=== PATIENT | female | born 1955 | race Caucasian/White ===

== ENCOUNTER 2025-05-27 09:02 | Emergency (ER) | payer MEDICARE, SELFPAY ==
--- OUTSIDE RECORDS SUMMARY | 2025-05-11 01:32 | XMS_ITS | Continuity of Care Document ---
Author Organization [facility] Phone Care Team Providers Care Feather Boner Name Role Phone JOSEP GROVES Admitting JOSEP GROVES Unavailable ZACH CRAIG Primary Care JOSEP GROVES Primary Attending ALLERGIES AND ADVERSE REACTIONS ALLERGIES AND ADVERSE REACTIONS Code System Allergy Substance Adverse Reaction Date Reaction (Severity) Comment Status Reported By Updated By No Known Allergies [id number] on May 09, 2025 12:57:05 PM [facility] RESULTS Patient: IVAN Colvin Date of : 1955 7 LABORATORY RESULTS Information is not available LABORATORY NARRATIVE RESULTS Information is not available RADIOLOGY RESULTS ORDER 100: KNEE 3V LT (LOINC : 21055-0) ORDER DATE: May 09, 2025 12:57:00 PM [facility] PERFORMING LAB: [address] [id number] Final Result Date: May 09, 2025 1:31:[address] [place] [address] Name: KEISHA LOVE Exam Date: 05/09/2025 : 1955 Age 69 years Gender: F Physician: JOSEP GROVES Facility: [facility] Facility HSV: Outpatient Exam: KNEE 3V LT Left knee 3 views HISTORY: Knee pain COMPARISON: None FINDINGS: 3 views obtained. No fracture or dislocation. No focal bone lesion or osseous loose body. No findings to indicate joint effusion. Joint compartments are well-maintained. IMPRESSION: No acute osseous abnormality. No significant degenerative changes. Electronically signed by: Marine South MD 05/09/2025 08:34 AM [facility] [place] Dictated By: MARINE SOUTH Transcribed By: Transcribed On: 05/09/2025 8:31 AM Electronically signed by: MARINE SOUTH 05/09/2025 Thank you for referring KEISHA LOVE to [facility]. Legally authenticated by KING MARINE 2025-05-09 08:31:53 PATHOLOGY NARRATIVE RESULTS Information is not available MICROBIOLOGY RESULTS No Micro Labs/Results Exist for Patient BLOOD ADMIN RESULTS Information is not available MEDICATIONS HOME MEDICATIONS Status RXNORM NDC Medication Dose Route Frequency Dates Comments Reported By Updated By Active [id number] 44368 buspirone 10 mg tablet 1.0 TAB ORAL DAILY Last Dose: [id number] on May 09, 2025 12:57:06 PM [facility] Active [id number] 46106 Celexa 10 mg tablet 0.0 ORAL DAILY Last Dose: [id number] on May 09, 2025 12:57:07 PM [facility] DISCHARGE MEDICATIONS Status RXNORM NDC Medication Dose Route Frequency Dates Dis pense Data Comments Physician Updated By No Discharge Medication Info rmation Available INPATIENT MEDICATIONS Status RXNORM NDC Medication Dose Route Frequency Rat e Quantity Dates Indication Dispense Data Comments Physician Updated By Bessie inued [id number] NEOSPORIN UD ORIGINAL 3.5-400-500 0 OINT 1.0 DAFNE ENTERA L ONE TIME ONLY Start: 2024 1:02:0 0 PM [place] End: 2024 1:02:0 0 PM [facility] GERMAIN Valadez MD INTERFAC ED on May 09, 2025 1:02:00 PM [facility] SOCIAL HISTORY SOCIAL HISTORY - Smoking Status SNOMED-CT Social History Element Description Effective Dates Offered Cessation Comment Updated By [id number] Current Tobacco smoking status Never Smoked [id number] on May 09, 2025 12:57:47 PM [facility] SOCIAL HISTORY - Gender Sex: Female SOCIAL HISTORY - Status : status i nformation is not available Intention in Next Year: intention information is not available SOCIAL HISTORY - Assessments Code System Description Status Date Value of Assessment Updated By Comment Assessment Information is no t available SOCIAL HISTORY - [place] Affiliation [place] information is not av ailable SOCIAL HISTORY - Legal Sex Legal Sex information is not available SOCIAL HISTORY - Sexual Behavior Sexual Orientation Gender Identity SNOMED-CT Description SNO MED -CT Description Activity Level No of Partners Partner Type UpdatedBy Information is not available SOCIAL HISTORY - Occupation Occupation information is no t available VITAL SIGNS PATIENT VITAL SIGNS This section displays the mo st recent value for each vital sign as of May 11, 2025 6:32:07 AM UTC Loinc Code Vital Sign Activity Date Result Updated By 8310-5 Body temperature May 09 12:49:50 PM UTC 98.1 [degF] 22409-3 Body weight Measured April 12:51:38 PM UTC 89.0 kg (196.0 lb) [id number] on May 09, 2025 12:51:38 PM UTC 8462-4 Diastolic blood pressure May 09, 2025 12:49:50 PM UTC 80.0 mm[Hg] 8867-4 Heart rate May 09 12:49:50 PM UTC 64 /min 26305-9 Oxygen saturation in Arterial blood by Pulse oximetry May 09, 2025 12:49:50 PM UTC 96.0 % 9279-1 Respiratory rate May 09 12:49:50 PM UTC 18 /min 8480-6 Systolic blood pressure May 09, 2025 12:49:50 PM UTC 161.0 mm[Hg] PEDIATRIC GROWTH CHART - VITAL SIGNS This section displays Head C ircumference Percentile, Weight for Length Percentile and BMI Percentile Loinc Code Pediatric Measure Age (Months) Result Updat ed By No Pediatric Growth Chart Pe rcentile Information Available. HEALTH CONCERNS Problems Concern Status Health Concern problem infor mation not available. Smoking Status Status Years Used Consumed packs p er day Health Concern smoking histo ry information not available. Family History Concern Status Health Concern family histor y information not available. ENCOUNTERS ENCOUNTER INFORMATION Reason for Visit FALL INJURY Admission May 09, 2025 12:43:00 PM [place] [address] [id number] Discharge May 09, 2025 1:42:00 PM UTC DISCHARGED TO HOME OR SELF CARE ENCOUNTER DIAGNOSES Notes information is not francisco javier ilable. Code System Diagnosis Onset Date Diagnosis information is not available. ABSTRACT DIAGNOSES Code System Diagnosis Updated By Abatement Date S89.92XA ICD10 UNSPECIFIED INJU RY OF LEFT LOWER LEG, INITIAL ENCOUNTER [id number] on May 11, 2025 6:30:58 AM UTC S01.91XA ICD10 LACERATION WITHO UT FOREIGN BODY OF UNSPECIFIED PART OF HEAD, INITIAL ENCOUNTER [id number] on May 11, 2025 6:30:58 AM UTC R51.9 ICD10 HEADACHE, UNSPECIFIED [id number] on May 11, 2025 6:30:58 AM UTC S80.02XA ICD10 CONTUSION OF LEF T KNEE, INITIAL ENCOUNTER [id number] on May 11, 2025 6:30:58 AM UTC S00.93XA ICD10 CONTUSION OF UNS PECIFIED PART OF HEAD, INITIAL ENCOUNTER [id number] on May 11, 2025 6:30:58 AM UTC F41.9 ICD10 ANXIETY DISORDER, UNSPECIFIE D [id number] on May 11, 2025 6:30:58 AM UTC F32.A ICD10 DEPRESSION, UNSPECIFIED [id number] on May 11, 2025 6:30:58 AM UTC Z79.899 ICD10 OTHER PRODUCTION COORDINATOR (CURRENT) DRUG THERAPY [id number] on May 11, 2025 6:30:58 AM UTC W01.198A ICD10 FALL ON SAME LEV EL FROM SLIPPING, TRIPPING AND STUMBLING WITH SUBSEQUENT STRIKING AGAINST OTHER OBJECT, INITIAL ENCOUNTER [id number] on May 11, 2025 6:30:58 AM UTC Y93.K1 ICD10 ACTIVITY, WALKING AN ANIMAL [id number] on May 11, 2025 6:30:58 AM [facility] CARE TEAM Care Feather Boner Role JOSEP GROVES Admitting JOSEP GROVES Referring ZACH CRAIG Primary Care JOSEP GROVES Primary Attending CARE TEAM CARE wind projects supervisor Role on Team Location Telecom Status Start Date End Hkadar e Updated By GERMAIN Valadez MD, MD Referring normal May 09, 2025 1:12:43 PM [place] May 09, 2025 1:42:00 PM [facility] [id number] on May 09, 2025 1:12:43 PM [facility] GERMAIN Valadez MD, MD Attending normal May 09, 2025 1:12:43 PM [facility] May 09, 2025 1:42:00 PM [facility] [id number] on May 09, 2025 1:12:43 PM [facility] GERMAIN Valadez MD, MD Admitting normal May 09, 2025 1:12:43 PM [place] May 09, 2025 1:42:00 PM [facility] [id number] on May 09, 2025 1:12:43 PM [facility] KIARA PARNELL APRN [facility] normal May 09, 2025 12:44:20 PM UTC May 09, 2025 1:42:00 PM [facility] [id number] on May 09, 2025 1:12:43 PM [facility]
[2025-05-27 09:20] VITALS: BP 133/82; PULSE 77; RESP 18; TEMP 36.4; O2SAT 97; BMI 32.5
--- NOTE | 2025-05-27 09:21 | CT_ITS ---
PROCEDURE INFORMATION: Exam: CT Maxillofacial With Contrast Exam date and time: 05/27/2025 10:23 AM Age: 70 years old Clinical indication: Other: Cf left facial abscess TECHNIQUE: Imaging protocol: Computed tomography of the face with contrast. Radiation optimization: All CT scans at this facility use at least one of these dose optimization techniques: automated exposure control; mA and/or kV adjustment per patient size (includes targeted exams where dose is matched to clinical indication); or iterative reconstruction. Contrast material: ISOVUE; Contrast volume: 80 ml; Contrast route: IV; COMPARISON: No relevant prior studies available. FINDINGS: Paranasal sinuses: No air-fluid levels. Orbital cavities: Orbits are normal. Globes are unremarkable. Lymph nodes: Borderline prominent, multi station lymph nodes likely reactive. Bones: No acute fracture. Soft tissues: There are phlegmonous changes overlying the labial aspect of the left maxillary alveolar process. The culprit is a periapical lucency along the left maxillary canine tooth (ADA 11). IMPRESSION: There are phlegmonous changes overlying the labial aspect of the left maxillary alveolar process. The culprit is a periapical lucency along the left maxillary canine tooth (ADA 11).
--- OUTSIDE RECORDS SUMMARY | 2025-05-27 09:28 | XMS_ITS | Clinical Summary ---
Author Organization 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 Name Role Phone Unavailable Primary Care Provider Unavailabl e Surgical History Surgery Date Site/Laterality Comments BREAST BIOPSY 06/21/1987 - 06/20/1988 Left Social History Tobacco Use Types Packs/Day Years Used Date Smoking Tobacco: Never Assessed Comments No Sex and Gender Information Value Date Recorded Sex Assigned at Not on file Legal Sex Female 12:12 PM EDT Gender Identity Not on file Sexual Orientation Not on file Obstetrics History Para Term AB IAB SAB Ectopic Multiple Livin g Live Births 2 Last Filed Vital Signs Vital Sign Reading Time Taken Comments Blood Pressure - - Pulse - - Temperature - - Respiratory Rate - - Oxygen Saturation - - Inhaled Oxygen Concentration - - Weight 83.9 kg (185 lb) 12/11/2024 9:58 AM EDT Height 165.1 cm (5' 5 ) 12/11/2024 9:58 AM EDT Body Mass Index 30.79 12/11/2024 9:58 AM EDT Plan of Treatment Health Maintenance Due Date Last Done Comments Wellness Exam Medicare 1958 Hepatitis C Screening 1975 DTaP/TDaP/Td (1 - Tdap) 1976 Colonoscopy 2002 FIT 2002 Sigmoidoscopy 2002 Virtual Colonography 2002 Pneumococcal Vaccine 50+ (1 of 1 - PCV) 2007 Zoster (1 of 2) 2007 Bone Density Screening 2022 COVID-19 Vaccine ( - 2024-2 6 season) 2025 Influenza Vaccine (#1) 2025 Breast Cancer Screening 12/11/2026 12/12/19 25, 12/11/2022 Cologuard 01/09/2027 01/10/2024, 06/21/2019 Colon Cancer Screening 01/09/2027 Hepatitis B Vaccine Aged Out No longe r eligible based on patient's age to complete this topic Meningococcal B Vaccine Aged Out No l onger eligible based on patient's age to complete this topic Procedures Procedure Name Priority Date/Time Associated Diagnosis Comments MM MAMMO DIGITAL CONNIE SCREEN BILAT Routine 12/11/2024 9:58 AM EDT Encounter for screening mammogram for malignant neoplasm of breast from Last 3 Months or Most Recently Relevant to Health Maintenance Results * MM MAMMO DIGITAL CONNIE SCREEN BILAT (12/11/2024 9:58 AM EDT) Anatomical Region Laterality Modality Breast Bilateral Mammography 12/11/2024 9:58 AM EDT Impressions 12/12/2024 8:15 AM EDT Negative ([id number]) RECOMMENDATION: Routine Screening Mammogram in 1 Year Bilateral . . COMMENTS: DISCLAIMER *The patient was notified by MyChart or mail of the results for this examination. *The patient's information was entered into a reminder system with a target due date for the next breast imaging, in accordance with the [employer] and the Society of Breast Imaging recommendations. *Breast Imaging has a false negative rate of 15%. *Any patient with a palpable abnormality, unexplained by breast imaging, should be managed on a clinical basis by the attending physician. Narrative 12/12/2024 8:15 AM EDT EXAM: MM MAMMO DIGITAL CONNIE SCREEN BILAT EXAM DATE: 12/11/2024 9:58 AM INDICATION: Z12.31-Encounter for screening mammogram for malignant neoplasm of [id number] COMPARISON STUDIES: Compared with prior studies the most recent being 12/11/2022 MM MAMMO DIGITAL CONNIE SCREEN BILAT at [facility] TISSUE DENSITY: The breasts are heterogeneously dense, which may obscure small masses. FINDINGS: No mammographic evidence of malignancy. Procedure Note Mar Mendez MD - 12/12/2024 EXAM: MM MAMMO DIGITAL CONNIE SCREEN BILAT EXAM DATE: 12/11/2024 9:58 AM INDICATION: Z12.31-Encounter for screening mammogram for malignantneoplasm of [id number]-NIQ-96-CM COMPARISON STUDIES: Compared with prior studies the most recent being 12/11/2022 MM MAMMO DIGITAL CONNIE SCREEN BILAT at [facility] TISSUE DENSITY: The breasts are heterogeneously dense, which may obscuresmall masses. FINDINGS: No mammographic evidence of malignancy. IMPRESSION: Negative ([id number]) RECOMMENDATION: Routine Screening Mammogram in 1 Year Bilateral . . COMMENTS: DISCLAIMER *The patient was notified by MyChart or mail of the results for this examination. *The patient's information was entered into a reminder system with atarget due date for the next breast imaging, in accordance with the [employer] and the Society of Breast Imaging recommendations. *Breast Imaging has a false negative rate of 15%. *Any patient with a palpable abnormality, unexplained by breast imaging,should be managed on a clinical basis by the attending physician. us Lindy Gamez SHEARER SCREEN MEASURER AND TRIMMER IMG MAMMOGRAPHY ORDERABLE S Final Result from Last 3 Months or Most Recently Relevant to Health Maintenance Insurance [employer] MEDICARE ADVANTAGE MR
[2025-05-27 09:31] VITALS: BP 128/78; PULSE 69; O2SAT 97
--- NOTE | 2025-05-27 09:35 | HMH.EDGENADL ---
Discharge Plan Disposition Patient Disposition: Home, Self-Care Condition: Fair Prescriptions Prescriptions: New amoxicillin-pot clavulanate [Augmentin] 500-125 mg tablet 1 tab PO BID Qty: 20 0RF Referrals Follow up/Referrals: Lindy Gamez APRN [Primary Care Provider, Medical] - See instructions Clinical Impressions Clinical Impression: Dental abscess Instructions Patient Instructions: DI for Tooth Abscess Print Language Print Language: Korean Discharge ED Provider: Chan Sadler General Adult HPI General Chief complaint: Dental/Oral Stated complaint: tooth pain, swelling Time Seen by Provider: 05/27/25 09:21 Mode of Arrival: Ambulatory Source of Information: Patient Description of Symptoms (Recalled from ER Triage Doc. by RN): pt presents to ED with c/o left sided facial swelling and pain. pt reports that symptoms began last night. History of Present Illness HPI narrative: Patient is a 70-year-old female with a history of multiple canals requiring multiple teeth extractions who complains of left-sided facial swelling over the past several days with pain. Denies fevers chills nausea or vomiting. Denies extraocular eye movement difficulties or vision changes Related Data Previous Rx's ?Medication ?Instructions ?Recorded amoxicillin 500 mg-potassium 1 tab PO BID #20 tabs 05/27/25 clavulanate 125 mg tablet (Augmentin) Allergies Allergy/AdvReac Type Severity Reaction Status Date / Time No Known Allergies Allergy Verified 05/27/25 09:23 [facility] Disclaimer: The information contained in this section may have been updated after the patient was seen, as this information can be updated by other users. Social History Smoking Status: Never smoker alcohol intake: never current occupational status: other Travel in the last 8 weeks?: None ROS Obtained: Yes Systems reviewed as appropriate & no additional complaints except as documented Physical Exam General General appearance: alert Head Head exam: atraumatic Eye Eye exam: Present normal appearance, PERRL and EOMI ENT ENT exam: Present normal exam and other (Left-sided maxillary swelling, pain with palpation of the left maxillary teeth) Chest Chest inspection: Present normal inspection Respiratory Respiratory exam: Present other (Saturating appropriately on room air with normal effort) Cardiovascular Cardiovascular exam: Present regular rate Abdominal Exam Abdominal exam: Present other (Nondistended) Extremities Exam Extremities exam: Present normal inspection Neurological Exam Neurological exam: Present alert and oriented X3 Psychiatric Psychiatric exam: Present normal affect Skin Skin exam: Present warm Medical Decision Making Medical Records Screening: Per USPSTF and CDC recommendations, given the prevalence of disease in our region, it is our hospital?s policy to screen for HIV and viral Hepatitis for all patients aged 18 and over and those with ongoing risk factors. Iraj Inquiry Pt receiving controlled substance: No Vital Signs: 05/27/25 09:20 05/27/25 09:31 05/27/25 10:00 Temperature 97.6 F Temperature Source Oral Pulse Rate 69 57 L Pulse Rate [Left Radial] 77 Respiratory Rate 18 Blood Pressure 128/78 138/78 Blood Pressure [Right Arm] 133/82 Blood Pressure Mean [Right Arm] 99 02 Sat by Pulse Oximetry 97 97 96 Oxygen Delivery Method Room Air 05/27/25 10:31 05/27/25 11:00 05/27/25 11:39 Temperature 97.6 F Temperature Source Pulse Rate 55 L 60 60 Pulse Rate [Left Radial] Respiratory Rate 18 Blood Pressure 156/83 H 161/75 H 160/81 H Blood Pressure [Right Arm] Blood Pressure Mean [Right Arm] 02 Sat by Pulse Oximetry 95 95 Oxygen Delivery Method Lab Data Lab Results 05/27/25 09:31: WBC 6.0, RBC 4.69, Hgb 14.7, Hct 43.6, MCV 93.0, MCH 31.3 H, MCHC 33.7, RDW 12.1, Plt Count 304, MPV 9.0, Neut % (Auto) 68.7, Lymph % (Auto) 21.4, [place] % (Auto) 7.5, Eos % (Auto) 1.5, Baso % (Auto) 0.7, Neut # (Auto) 4.1, Lymph # (Auto) 1.3, [place] # (Auto) 0.5, Eos # (Auto) 0.1, Baso # (Auto) 0.0, Sodium 134 L, Potassium 4.0, Chloride 102, Carbon Dioxide 26, Anion Gap 10.0, BUN 8, Creatinine 0.80, Estimated Creat Clear 76, Estimated GFR 71, Est GFR ( Amer) 86, Glucose 104 H, Calcium 9.6, Total Bilirubin 0.5, AST 34, ALT 42, Alkaline Phosphatase 80, C-Reactive Protein 2.8, Total Protein 8.1, Albumin 4.6, Globulin 3.5 H, Albumin/Globulin Ratio 1.3 no leukocytosis or significant anemia, crp not significantly elevated, no hepatic or renal dysfunction 05/27/25 09:31 05/27/25 09:31 Orders (Tests/Meds): ED MEDICATIONS Discontinued Medications Generic Name Dose Route Start Last Admin Trade Name Pascualq PRN Reason Stop Dose Admin Benzocaine/Butamben/Tetracaine HCl 1 gm 05/27/25 10:50 05/27/25 11:15 Tetracaine/Benzocaine/Butamben 56 Gm [place] TP 05/27/25 10:51 1 gm ONCE ONE Administration Iopamidol 80 ml 05/27/25 10:29 05/27/25 10:30 Iopamidol-370 (76%);100ml Bottle IV 05/27/25 10:30 80 ml ONCE ONE Administration Lidocaine HCl 15 ml 05/27/25 10:50 05/27/25 11:15 Lidocaine 2% Viscous Rosa 15ml Udc PO 05/27/25 10:51 15 ml ONCE ONE Administration Sodium Chloride 10 ml 05/27/25 10:29 05/27/25 10:30 Sodium Chloride 0.9% 10ml Syr (Rad Only) IV 05/27/25 10:30 10 ml ONCE ONE Administration ORDERS Category Date Time Status CT facial bones w con Stat Cat Scan 05/27/25 09:21 Completed C-Reactive Protein Stat Lab 05/27/25 09:31 Completed CBC w/Auto Diff [Complete Blood Count Auto Diff] Stat Lab 05/27/25 09:31 Completed CMP [Comprehensive Metabolic Panel] Stat Lab 05/27/25 09:[address] Scan: Other (face) Time Received: 09:[address] Reviewed: Yes I have reviewed the patient's CT results and I have viewed the radiologist's interpretation Findings Narrative: periapical abscess with phlegmonous changes without discrete abscess US Data ED US Reviewed: Yes I have reviewed the patient's US results and I have viewed radiologist's interpretation Medical Decision Narrative: patient remained hds, pain well controlled with naproxen and tylenol. prescribed augmentin given evidence of dental infeciton without organized abscess, given return precautions for systemic symptoms, worsening of swelling, eom difficulties, or vision changes. states she will f/u with dentist this week. Critical Care Critical Care Time Critical Care Time: No
[2025-05-27 09:40] LABS: Hematocrit 43.6 % (37.0-47.0); Hemoglobin 14.7 g/dL (12.2-16.2); Immature Granulocytes % 0.2 %; Mean Corpuscular HGB Conc 33.7 g/dL (31.8-35.4); Mean Corpuscular Hemoglobin 31.3 pg (27.0-31.2); Mean Corpuscular Volume 93.0 fl (81-99); Nucleated Red Blood Cells % 0 %; Platelet Count 304 K/mm3 (142-424); Red Blood Count 4.69 M/mm3 (4.20-5.40); Red Cell Distribution Width-SD 41.9 fL; White Blood Count 6.0 K/mm3 (4.8-10.8)
[2025-05-27 09:50] LABS: Alanine Aminotransferase 42 U/L (12-78); Albumin Level 4.6 g/dl (3.5-5.0); Albumin/Globulin Ratio 1.3 (1.1-1.8); Alkaline Phosphatase 80 U/L (38-126); Anion Gap 10.0 mEq/L (5-15); Aspartate Amino Transferase 34 U/L (14-36); Bilirubin,Total 0.5 mg/dl (0.2-1.3); Blood Urea Nitrogen 8 mg/dl (7-17); Calcium 9.6 mg/dl (8.4-10.2); Carbon Dioxide 26 mmol/L (22.0-30.0); Chloride 102 mmol/L (98-107); Creatinine Clearance Estimated 76 mL/min (50-200); Creatinine,Serum 0.80 mg/dl (0.52-1.04); Estimated Glomerular Filt Rate 71 ml/min (>60); GFR (African American) 86 ML/MIN (>60); Globulin 3.5 g/dL (1.3-3.2); Glucose 104 mg/dl (74-100); Potassium 4.0 mmoL/L (3.5-5.1); Sodium 134 mmol/L (136-145); Total Protein,Serum 8.1 g/dl (6.3-8.2)
[2025-05-27 09:54] LABS: C-Reactive Protein 2.8 mg/L (0-4)
[2025-05-27 10:00] VITALS: BP 138/78; PULSE 57; O2SAT 96
[2025-05-27] MEDS: IOPAMIDOL-370 (76%);100ML BOTTLE 80 ML IV (10:30)
[2025-05-27] MEDS: SODIUM CHLORIDE 0.9% 10ML SYR (RAD ONLY) 10 ML IV (10:30)
[2025-05-27 10:31] VITALS: BP 156/83; PULSE 55; O2SAT 95
[2025-05-27 11:00] VITALS: BP 161/75; PULSE 60; O2SAT 95
[2025-05-27] MEDS: TETRACAINE/BENZOCAINE/BUTAMBEN 56 GM SPRAY TP (11:15)
[2025-05-27] MEDS: LIDOCAINE 2% VISCOUS SOL 15ML UDC 15 ML PO (11:15)
[2025-05-27 11:39] VITALS: BP 160/81; PULSE 60; RESP 18; TEMP 36.4; O2SAT 95
== END 2025-05-27 11:39 | disposition home or self-care (01) ==
PROVIDERS: Emergency Provider Student in an Organized Health Care Education/Training Program; PCP Nurse Practitioner
DX: K04.7 Periapical abscess without sinus (principal); R22.0 Localized swelling, mass and lump, head
CPT/HCPCS: 70487; 80053; 85025; 86140; 99284; 99285; Q9967